=== PATIENT | male | born 1960 | race Caucasian/White ===

== ENCOUNTER → 2017-06-19 | Outpatient (CLI) | payer BC ==
[2017-06-19 09:50] LABS: ABSOLUTE BASOPHILS # (AUTO) 0.2 10^3/uL (0.0-0.2); ABSOLUTE EOSINOPHILS # (AUTO) 0.4 10^3/uL (0.0-0.6); ABSOLUTE MONOCYTES (AUTO) 0.7 10^3/uL (0.1-1.4); ABSOLUTE NEUT (AUTO) 5.9 10^3/uL (1.7-8.2); BASOPHILS % (AUTO) 2.1 % (0-2); EOSINOPHILS % (AUTO) 4.4 % (0-6); HEMATOCRIT 46.4 % (37.9-51.0); HEMOGLOBIN 16.4 g/dL (13.5-17.0); HGB HCT DIFFERENCE 2.8; LYMPHOCYTES % (AUTO) 21.7 % (13-45); MEAN CORPUSCULAR HEMOGLOBIN 28.8 pg (27.0-33.4); MEAN CORPUSCULAR HGB CONC 35.3 g/dL (32.0-36.0); MEAN CORPUSCULAR VOLUME 82 fl (80-97); MONOCYTES % (AUTO) 7.2 % (3-13); RED BLOOD COUNT 5.67 10^6/uL (4.35-5.55); RED CELL DISTRIBUTION WIDTH 13.9 % (11.5-14.0); SEGMENTED NEUTROPHILS % (AUTO) 64.6 % (42-78); WHITE BLOOD COUNT 9.1 10^3/uL (4.0-10.5)
[2017-06-19 10:08] LABS: ALANINE AMINOTRANSFERASE 28 U/L (21-72); ALBUMIN 4.1 g/dL (3.5-5.0); ALKALINE PHOSPHATASE 98 U/L (38-126); ANION GAP 11 (5-19); ASPARTATE AMINO TRANSFERASE 25 U/L (17-59); BILIRUBIN,DIRECT 0.5 mg/dL (0.0-0.4); BILIRUBIN,TOTAL 0.9 mg/dL (0.2-1.3); BLOOD UREA NITROGEN 17 mg/dL (7-20); CALCIUM 9.5 mg/dL (8.4-10.2); CARBON DIOXIDE 26 mmol/L (22-30); CHLORIDE 106 mmol/L (98-107); CHOLESTEROL 200.79 mg/dL (0-200); CREATININE RESULT 1.02 mg/dL (0.52-1.25); Direct HDL 38 mg/dL (>40); GLUCOSE 86 mg/dL (75-110); POTASSIUM 4.8 mmol/L (3.6-5.0); SODIUM 143.4 mmol/L (137-145); TOTAL PROTEIN 7.5 g/dL (6.3-8.2); TRIGLYCERIDES 143 mg/dL (<150)
[2017-06-19 10:19] LABS: DIRECT LDL 128 mg/dL (<100)
== END ==
LOC: OD 08:37
PROVIDERS: ATTEND Internal Medicine
DX: J44.9 Chronic obstructive pulmonary disease, unspecified (principal); Z68.34 Body mass index [BMI] 34.0-34.9, adult; M19.91 Primary osteoarthritis, unspecified site; R53.83 Other fatigue; R35.1 Nocturia
CPT/HCPCS: 36415; 80053; 80061; 84153; 84443; 85025

== ENCOUNTER → 2017-09-11 | Outpatient (CLI) | payer BC ==
[2017-09-11 14:28] LABS: BLOOD UREA NITROGEN 12 mg/dL (7-20)
== END ==
LOC: OD 13:06
PROVIDERS: ATTEND Internal Medicine
DX: Z01.812 Encounter for preprocedural laboratory examination (principal)
CPT/HCPCS: 36415; 82565; 84520

== ENCOUNTER → 2017-09-20 | Outpatient (CLI) | payer BC ==
--- NOTE | 2017-09-20 11:20 | RADIOLOGY REPORT (SQ) ---
EXAM DESCRIPTION: CTA CHEST COMPLETED DATE/TIME: 09/20/2017 10:48 am REASON FOR STUDY: I26.99 OTHER PULMONARY EMBOLISM WITHOUT ACUTE COR PULMONALE R06.02 SHORTNES I26.99 OTHER PULMONARY EMBOLISM WITHOUT ACUTE COR PULMONALE R06.02 SHORTNESS OF BREATH COMPARISON: None. TECHNIQUE: CT scan of the chest performed using helical scanning technique with dynamic intravenous contrast injection. Images reviewed with lung, soft tissue and bone windows. Reconstructed coronal and sagittal MPR images reviewed. Additional 3 dimensional post-processing performed to develop Maximal Intensity Projection images (SC P). All images stored on PACS. All CT scanners at this facility use dose modulation, iterative reconstruction, and/or weight based d osing when appropriate to reduce radiation dose to as low as reasonably achievable (ALARA). [facility]: Dose Right [facility]: CareDose [facility]: Dose Right [facility]: Teradose 4D [facility]: PulpWorks CONTRAST TYPE AND DOSE: contrast/concentration: Isovue 370.00 mg/ml; Total Contrast Delivered: 65.0 ml; Total Saline Delivered: 105.0 ml Contrast bolus optimized for the pulmonary arteries. Not diagnostic for the aorta. RENAL FUNCTION: Creatinine 1.0 RADIATION DOSE: CT Rad equipment meets quality standard of care and radiation dose reduction techniq ues were employed. CTDIvol: 9.8 - 11.3 mGy. DLP: 366 mGy-cm. . LIMITATIONS: None. FINDINGS: LUNGS AND PLEURA: Extensive changes of peripheral pulmonary fibrosis are present within th e end-stage honeycomb appearance around the periphery of both lungs. A 6.7 cm smooth round nodule is present along the ventral edge of the left major fissure axial image 17. A 9 mm ill-defined alveolar nodule is present in the lingula on axial image 30. No pleural effusion. No pneumothorax. No findings of acute pneumonia or consolidation. Airways are patent. AORTA AND GREAT VESSELS: No aneurysm. Contrast bolus not optimized for the aorta. HEART: No pericardial effusion. No significant coronary artery calcifications. PULMONARY ARTERIES: No emboli visualized in the main pulmonary arteries or the segmental branches. HILAR AND MEDIASTINAL STRUCTURES: Diffuse mediastinal adenopathy as follows: Anterior mediastinal 1.0 x 0.8 cm lymph node axial image 28 Pretracheal 1.1 cm and 0.8 x 0.6 cm nodes axial image 33 Pretracheal 1.3 x 1.3 cm lymph node axial image 41 Precarinal 1.8 x 1.2 cm lymph node axial image 50 Right hilum 2.6 x 1.3 cm node axial image 57 Right hilar 2 x 1.3 cm lymph node axial image 62 Right hilar 2.2 x 1.6 cm node axial image 72 Left hilar 1.6 x 0.8 cm node axial image 58 Left hilar 2 x 1.6 cm node axial image 72 Sub- carinal 2.3 x 1.2 cm node axial image 64 Prevascular 2 x 0.9 cm node axial image 47 HARDWARE: None in the chest. UPPER ABDOMEN: No significant findings. Limited exam. THYROID AND OTHER SOFT TISSUES: No masses. No adenopathy. BONES: No acute or significant finding. 3D MIPS: Confirm above findings. OTHER: No other significant finding. IMPRESSION: No CT angio evidence of acute pulmonary emboli. Diffuse changes of advanced pulmonary fibrosis around the periphery of both lungs Bilateral hilar and mediastinal adenopathy Subcentimeter left lung nodules as above. COMMENT: Quality ID # [id number]: Final reports with documentation of one or more dose reduction techniques (e.g., Automated exposure control, adjustment of the mA and/or kV according to patient size, use of iterative reconstruction technique) TECHNICAL DOCUMENTATION: JOB ID: [id number] [employer]- All Rights Reserved
== END ==
LOC: RAD 10:04
PROVIDERS: ATTEND Internal Medicine
DX: I26.99 Other pulmonary embolism without acute cor pulmonale (principal); R06.02 Shortness of breath
CPT/HCPCS: 71275

== ENCOUNTER → 2017-09-23 | Outpatient (CLI) | payer BC, OTHER ==
--- NOTE | 2017-09-23 14:29 | RADIOLOGY REPORT (SQ) ---
EXAM DESCRIPTION: MRI RT UPPER JOINT WITHOUT COMPLETED DATE/TIME: 09/23/2017 11:09 am REASON FOR STUDY: PAIN IN RIGHT SHOULDER M25.511 PAIN IN RIGHT SHOULDER COMPARISON: None. TECHNIQUE: Right shoulder images acquired and stored on PACS. Multiplanar imaging to include fat sen sitive sequences such as T1, water sensitive sequences such as FST2/STIR, cartilage sensitive sequenc es such as FSPD/gradient-echo sequences. LIMITATIONS: None. FINDINGS: BONE MARROW AND CORTEX: No worrisome bone lesions or marrow replacement. No occult fractur es. JOINT OR BURSAL EFFUSION: No significant joint or bursal fluid. No suggestion of loose bodies. GLENO-HUMERAL ARTICULATION: Normal articulation. No subluxation. No cystic change. No osteophytes or cartilage loss. ACROMION AND AC JOINT: Type 2 acromion. Distal acromial spur. Sclerotic changes with reactive edema of the AC joint. ROTATOR CUFF AND INTERVAL: No significant tear or signal alteration. No cuff muscle atrophy. No rotator interval tear. No rotator interval thickening to suggest adhesive capsulitis. LABRUM AND BICEPS LABRAL COMPLEX: Type 2 slap tear. The distal biceps in its normal anatomic locat ion. REMAINDER OF LABRUM AND IGHL : No gross tear or paralabral cyst formation. Labral evaluation is less than optimal without joint distention. No thickening of IGHL to suggest adhesive capsulitis. PERIARTICULAR AND ADJACENT SOFT TISSUES: No masses or abnormal nodes. OTHER: No other significant finding. IMPRESSION: Type 2 slap tear. AC joint arthropathy. TECHNICAL DOCUMENTATION: JOB ID: [id number] [email or web address]- All Rights Reserved
== END ==
LOC: RAD 10:13
PROVIDERS: ATTEND Physician Assistant Surgical
DX: M25.511 Pain in right shoulder (principal)

== ENCOUNTER → 2017-10-03 | Outpatient (CLI) | payer BC, OTHER ==
[~2017-10-03] MED LIST: AMINOPHYLLINE INJ/PF 250 MG/10 ML SDV IV ONE; REGADENOSON INJ 0.4 MG/5 ML DISP.SYRIN IV ONE
--- NOTE | 2017-10-03 13:43 | DRAGON STRESS TEST REPORT ---
INTRAVENOUS LEXISCAN CARDIOLITE STRESS TEST USING SINGLE PHOTON EMMISION COMPUTERIZED TOMOGRAPHIC. DATE OF PROCEDURE: October 03, 2017, INDICATION : Exertional dyspnea CARDIAC RISK FACTORS: Tobacco abuse, history of COPD RESTING EKG: Sinus rhythm without any baseline ST-T wave changes STRESS EKG: No significant changes noted with LexiScan bolus REASON FOR TERMINATION: Protocol. PROCEDURE REPORT: Baseline heart rate 81 beats per minute with blood pressure of 121/65. Patient had no significant complaints. Heart rate at 2 minutes post bolus 105 with a blood pressure of 107/69. 3 minutes post bolus heart rate 100 with blood pressure of 111/65. No significant EKG changes were noted. Patient had no significant complaints during the procedure or postprocedure. Patient injected with Aminophyllin 75 mg at 3 minutes or later after Lexiscan bolus. CONCLUSIONS: Normal EKG and hemodynamic response to IV LexiScan. NUCLEAR DATA: At rest the patient was given 12.03 millicuries of technetium 99 sestamibi injected intravenously. As per protocol rest gated SPECT images were obtained. On day of stress test, the patient was given intravenous LexiScan at a dose of 0.4 mg in 5 mL intravenously, followed by flush with normal saline. Subsequently the stress dose of 35.2 millicuries of technetium 99 sestamibi was injected intravenously. As per protocol stress gated images were obtained. NUCLEAR INTERPRETATION: Both raw and processed data were used for interpretation. Visual, qualitative, computer-generated quantitative data was used. There was good myocardial uptake of technetium compound. Motion artifact and soft tissue attenuations were noted. Increased visceral uptake was noted. No definitive areas of transient perfusion defect noted, No definitive areas of fixed perfusion defect or scars noted. EKG gated imaging showed LV EF at 64 %, rest and stress gated EF similar visually. T. I D. ratio was 1.25. Lung heart ratio noted to be within normal limits 0.42. No significant extracardiac and abnormal radiotracer activities were noted. RV free wall uptake was noted to be WNL. IMPRESSION: Also refer to comments under nuclear interpretation. Also test results needs to be interpreted in the context of pretest probability. 1. No definitive areas of transient perfusion defect noted. 2. There is no definitive scintigraphic evidence of myocardial infarction/scar. 3. EKG gated imaging shows left ventricular ejection fraction of approx. 64 %. Borderline transient ischemic dilatation noted. Most recent literature review suggest no significant increased cardiovascular event rate in the absence of significant perfusion abnormalities. However clinical correlation is requested. 4. Clinical correlation requested as occasionally single vessel disease or balanced ischemia could be missed. In approximately 10% of the cases Lexiscan may not cause adequate vasodilatory stress. RECOMMENDATIONS: Aggressive risk factor modification and medical management. Further evaluation may be needed if continued symptoms or other high risk indicators are noted on clinical evaluation. Close cardiology follow-up is also recommended. Clinical correlation with echocardiogram derived ejection fraction. Inability to exercise by itself can lead to increased cardiovascular event risks. Consider cardiology consultation and or follow-up if clinically indicated. I am available for cardiology evaluation and consultation if requested by the primary care coordinator, unless patient already has a well shooter. ALIZE
== END ==
LOC: RAD 07:51
PROVIDERS: ATTEND Internal Medicine
DX: R06.09 Other forms of dyspnea (principal)
CPT/HCPCS: 93017; 78452; A9500; J2785; J0280; Q9969

== ENCOUNTER → 2017-10-16 | Outpatient (CLI) | payer BC, OTHER ==
[2017-10-18 12:39] LABS: ANTICHROMATIN AB 0.3 AI (0.0-0.9); CENTROMERE B AB <0.2 AI (0.0-0.9); JO-1 ANTIBODY (ANACOMP) <0.2 AI (0.0-0.9); RNP AB 0.3 AI (0.0-0.9); SCLERODERMA-70 ANTIBODIES 0.2 AI (0.0-0.9); SJOGREN'S ANTI-SS-B AB <0.2 AI (0.0-0.9); SJOGREN'S SS-A ANTIBODY <0.2 AI (0.0-0.9); SMITH AB ANA <0.2 AI (0.0-0.9)
[2017-10-18 14:03] LABS: DNA DOUBLE STRAND ANTIBODY ANA 1 IU/mL (0-9)
[2017-10-21 13:37] LABS: CYTOPLASMIC (C-ANCA) <1:20 titer (Neg:<1:20); M001-IGE PENICILLIUM CHRYSOGEN <0.10 kU/L (Class 0); M002-IGE CLADOSPORIUM HERBARUM <0.10 kU/L (Class 0); M003-IGE ASPERGILLUS FUMIGATUS <0.10 kU/L (Class 0); M004-IGE MUCOR RACEMOSUS <0.10 kU/L (Class 0); M005-IGE CANDIDA ALBICANS 0.17 kU/L (Class 0/I); M006-IGE ALTERNARIA ALTERNATA <0.10 kU/L (Class 0); M009-IGE FUSARIUM PROLIFERATUM <0.10 kU/L (Class 0); M012-IGE AUREOBASIDI PULLULANS <0.10 kU/L (Class 0); M013-IGE PHOMA BETAE <0.10 kU/L (Class 0); M014-IGE EPICOCCUM PURPURASCEN <0.10 kU/L (Class 0)
[2017-10-21 13:41] LABS: ATYPICAL PANCA <1:20 titer (Neg:<1:20); M010-IGE STEMPHYLIUM HERBARUM <0.10 kU/L (Class 0); PERINUCLEAR (P-ANCA) <1:20 titer (Neg:<1:20)
== END ==
LOC: OD 13:44
PROVIDERS: ATTEND Physician Assistant
DX: J84.10 Pulmonary fibrosis, unspecified (principal); R05 Cough; R06.00 Dyspnea, unspecified
CPT/HCPCS: 36415; 82785; 86003; 86021; 86225; 86235; 86430; 87070; 87077; 87186; 87205

== ENCOUNTER → 2018-11-20 | Outpatient (CLI) | payer BC, OTHER ==
--- NOTE | 2018-11-20 12:18 | RADIOLOGY REPORT (SQ) ---
EXAM DESCRIPTION: CT CHEST WITHOUT COMPLETED DATE/TIME: 11/20/2018 10:09 am REASON FOR STUDY: PULMONARY FIBROSIS J84.10 PULMONARY FIBROSIS, UNSPECIFIED COMPARISON: 09/20/2017 TECHNIQUE: CT scan performed of the chest without intravenous contrast. Images reviewed with lung, soft tissue and bone windows. Reconstructed coronal and sagittal MPR images reviewed. All images st ored on PACS. All CT scanners at this facility use dose modulation, iterative reconstruction, and/or weight based d osing when appropriate to reduce radiation dose to as low as reasonably achievable (ALARA). [facility]: Dose Right [facility]: CareDose [facility]: Dose Right [facility]: Teradose 4D [facility]: [employer] RADIATION DOSE: CT Rad equipment meets quality standard of care and radiation dose reduction techniq ues were employed. CTDIvol: 5.2 mGy. DLP: 205 mGy-cm. mGy. LIMITATIONS: No technical limitations. FINDINGS: LUNGS AND PLEURA: Centrilobular and paraseptal emphysema with stable honeycombing approxim ately 50% of lung volume. Stable pulmonary nodules. Image 27 right apex at 4 mm. Image 33 left upp er lobe 7 mm. Image 68 left upper lobe 6 mm. No new nodules. HILAR AND MEDIASTINAL STRUCTURES: Mildly enlarged, likely reactive nodes measuring just over 1 cm max imum diameter. HEART AND VASCULAR STRUCTURES: No aneurysm. No pericardial effusion. UPPER ABDOMEN: No significant findings. Limited exam. THYROID AND OTHER SOFT TISSUES: No masses. No adenopathy. BONES: Nothing acute. HARDWARE: None in the chest. OTHER: No other significant findings. IMPRESSION: Pulmonary fibrosis. Stable pulmonary nodules. TECHNICAL DOCUMENTATION: JOB ID: [id number] Quality ID # [id number]: Final reports with documentation of one or more dose reduction techniques (e.g., Au tomated exposure control, adjustment of the mA and/or kV according to patient size, use of iterative reconstruction technique) 2010 [employer]- All Rights Reserved Reading location - IP/workstation name: [email or web address]
== END ==
LOC: RAD 09:59
PROVIDERS: ATTEND Internal Medicine Pulmonary Disease
DX: J84.10 Pulmonary fibrosis, unspecified (principal)
CPT/HCPCS: 71250

== ENCOUNTER → 2019-02-02 | Outpatient (CLI) | payer BC ==
--- NOTE | 2019-02-04 22:30 | XCELERA REPORT ---
[address] [address] Transthoracic Echocardiogram Report Name: ONEAL GARVEY JR Age: 58 yrs Gender: Male : 1960 Patient Status: Outpatient Patient Location: Study Date: 02/02/2019 11:23 AM Height: 67 in Weight: 174 lb BSA: 1.9 m2 Procedure: A complete two-dimensional transthoracic echocardiogram was performed (2D, M-mode, spectral and color flow Doppler). The study was technically adequate with some images being suboptimal in quality. Reason For Study: INTERSTITIAL PULMONARY DISEASE Ordering Physician: LIZZETTE ESPINAL Performed By: Freddie Joseph Interpretation Summary The left ventricular ejection fraction is normal. Doppler measurements suggest pseudonormalized left ventricular relaxation, which is associated with grade II/IV or mild to moderate diastolic dysfunction There is borderline concentric left ventricular hypertrophy. The left ventricle is grossly normal size. Wall motion cannot be accurately commented on, but no definite regional wall motion abnormalities noted. The right ventricle is mildly dilated. The right ventricle appears to be hypertrophied The right ventricular systolic function is normal. Borderline right atrial enlargement. There is a mild amount of mitral regurgitation There is no mitral valve stenosis. There is a trace amount of aortic regurgitation There is no aortic valve stenosis There is a trace to mild amount of tricuspid regurgitation Right ventricular systolic pressure is estimated to be elevated at 40-50mmHg. There is mild to moderate pulmonary hypertension by echo The aortic root is not well visualized but is probably normal size. The inferior vena cava appeared normal and decreased > 50% with respiration (RAP 5-10 mmHg) There is no pericardial effusion. MMode/2D Measurements & Calculations RVDd: 3.6 cm LVIDd: 4.4 cm FS: 34.6 % Ao root diam: 3.2 cm IVSd: 0.76 cm LVIDs: 2.9 cm EDV(Teich): Ao root area: 89.4 ml LVPWd: 0.92 cm 8.1 cm2 ESV(Teich): LA dimension: 3.5 cm 32.2 ml EF(Teich): 64.0 % LVLd ap4: 7.7 cm SV(MOD-sp4): EDV(MOD-sp4): 55.0 ml 93.0 ml LVLs ap4: 6.4 cm ESV(MOD-sp4): 38.0 ml EF(MOD-sp4): 59.1 % Doppler Measurements & Calculations MV E max gennaro: MV P1/2t max gennaro: Ao V2 max: LV V1 max P.9 cm/sec 93.6 cm/sec 121.5 cm/sec 5.0 mmHg MV A max gennaro: MV P1/2t: 69.5 msec Ao max P.9 mmHgLV V1 max: 49.0 cm/sec 111.4 cm/sec MVA(P1/2t): 3.2 cm2 MV E/A: 2.0 MV dec slope: 394.5 cm/sec2 MV dec time: 0.16 sec PA V2 max: TR max gennaro: MV P1/2t-pr_phl: 100.2 cm/sec 305.4 cm/sec 69.5 msec PA max P.0 mmHgTR max P.3 mmHg Left Ventricle The left ventricle is grossly normal size. There is borderline concentric left ventricular hypertrophy. The left ventricular ejection fraction is normal. Doppler measurements suggest pseudonormalized left ventricular relaxation, which is associated with grade II/IV or mild to moderate diastolic dysfunction. Wall motion cannot be accurately commented on, but no definite regional wall motion abnormalities noted. Right Ventricle The right ventricle is mildly dilated. The right ventricle appears to be hypertrophied. The right ventricular systolic function is normal. Atria Borderline right atrial enlargement. Borderline left atrial enlargement. Mitral Valve The mitral valve is grossly normal. There is no mitral valve stenosis. There is a mild amount of mitral regurgitation. Aortic Valve The aortic valve is grossly normal. There is no aortic valve stenosis. There is a trace amount of aortic regurgitation. Tricuspid Valve The tricuspid valve is not well visualized, but is grossly normal. There is no tricuspid stenosis. There is a trace to mild amount of tricuspid regurgitation. Right ventricular systolic pressure is estimated to be elevated at 40-50mmHg. There is mild to moderate pulmonary hypertension by echo. Pulmonic Valve The pulmonic valve is not well visualized. Great Vessels The aortic root is not well visualized but is probably normal size. The inferior vena cava appeared normal and decreased > 50% with respiration (RAP 5-10 mmHg). Effusions There is no pericardial effusion. : LIZZETTE ESPINAL > Luciano Vernon
== END ==
LOC: SP 10:37
PROVIDERS: ATTEND Internal Medicine
DX: J84.9 Interstitial pulmonary disease, unspecified (principal); I27.20 Pulmonary hypertension, unspecified
CPT/HCPCS: 93306

== ENCOUNTER → 2019-03-13 | Outpatient (CLI) | payer OTHER ==
--- NOTE | 2019-03-17 12:39 | Pulmonary Function Test ---
Pulmonary Function Test Date of Procedure:: 03/13/19 INDICATION:: dypsnea Referring Provider: Dr.Edwin Ortiz Cream Separator Operator: Marianela Reyez GATHERING WORKER,LAUNDROMAT MANAGER - Report Spirometry: Spirometry: pre-FVC: 3.24L 80% pre-FEV:1 2.59 L 79% pre-FEV1/FVC % 80 predicted 80 xwa-PMA76-50% 2.59 L 77% Diffusion Capactity: DLCO: 12.3 55% DLCO/VA: 2.65 68% Impression: No obstructive ventilatory defect. Moderate decrease in diffusion capacity.
== END ==
LOC: RT 08:03
DX: J84.112 Idiopathic pulmonary fibrosis (principal)
CPT/HCPCS: 94010; 94729

== ENCOUNTER 2019-07-31 10:52 | Emergency (ER) | payer BC, OTHER ==
--- NOTE | 2019-07-31 11:22 | ER Document Report ---
ED Respiratory Problem - General Chief Complaint: Productive Cough Stated Complaint: COUGHING UP BLOOD Time Seen by Provider: 07/31/19 11:15 Primary Care Provider: LIZZETTE ESPINAL MD [Primary Care Provider] - Follow up as needed Mode of Arrival: Ambulatory Information source: Patient Notes: 59-year-old male presented to ED for complaint of cough and congestion with c oughing up to large blood clots this morning. He states he has been coughing up little specks of blood since morning but first he coughed up 2 good-sized globs of blood. He does have COPD asthma and clubbing to the fingers due to the COPD. He states he does smoke cigarettes still. He states he knows he needs to quit but that he enjoys smoking and he is continuing to smoke. Patient states he is normally very sedentary but 2 days ago he had to get down in a hole and when he was getting into a hole and working he did feel like something popped in the left side of his chest but it feels more like a sore on the outside not inside. I have greeted and performed a rapid initial assessment of this patient. A comprehensive ED assessment and evaluation of the patient, analysis of test res ults and completion of medical decision making process will be conducted by an additional ED providers. TRAVEL OUTSIDE OF THE [place] IN LAST 30 DAYS: No - Related Data Allergies/Adverse Reactions: No Known Allergies Allergy (Unverified 07/31/19 11:17) Physical Exam - Vital signs Vitals: Temp Pulse Resp BP Pulse Ox 97.4 F 85 18 136/80 H 94 07/31/19 11:02 07/31/19 11:02 07/31/19 11:02 07/31/19 11:02 07/31/19 11:02 Course - Vital Signs Vital signs: Temp Pulse Resp BP Pulse Ox 97.4 F 85 18 136/80 H 94 07/31/19 11:02 07/31/19 11:02 07/31/19 11:02 07/31/19 11:02 07/31/19 11:02 Discharge - Discharge Referrals: LIZZETTE ESPINAL MD [Primary Care Provider] - Follow up as needed
--- NOTE | 2019-07-31 11:23 | ER Document Report ---
ED Medical Screen (RME) - General Chief Complaint: Cough Stated Complaint: COUGHING UP BLOOD Time Seen by Provider: 07/31/19 11:15 Primary Care Provider: LIZZETTE ESPINAL MD [Primary Care Provider] - Follow up as needed Mode of Arrival: Ambulatory Information source: Patient Notes: 59-year-old male presented to ED for complaint of cough and congestion with coughing up to large blood clots this morning. He states he has been coughing up little specks of blood since morning but first he coughed up 2 good-sized globs of blood. He does have COPD asthma and clubbing to the fingers due to the COPD. He states he does smoke cigarettes still. He states he knows he needs to quit but that he enjoys smoking and he is continuing to smoke. Patient states he is normally very sedentary but 2 days ago he had to get down in a hole and when he was getting into a hole and working he did feel like something popped in the left side of his chest but it feels more like a sore on the outside not inside. I have greeted and performed a rapid initial assessment of this patient. A comprehensive ED assessment and evaluation of the patient, analysis of test results and completion of medical decision making process will be conducted by an additional ED providers. TRAVEL OUTSIDE OF THE [place] IN LAST 30 DAYS: No - Related Data Allergies/Adverse Reactions: codeine Adverse Reaction (Verified 07/31/19 11:23) Past Medical History - Social History Chew tobacco use (# tins/day): No Drug Abuse: None Physical Exam - Vital signs Vitals: Temp Pulse Resp BP Pulse Ox 97.4 F 85 18 136/80 H 94 07/31/19 11:02 07/31/19 11:02 07/31/19 11:02 07/31/19 11:02 07/31/19 11:02 Course - Vital Signs Vital signs: Temp Pulse Resp BP Pulse Ox 97.4 F 85 18 136/80 H 94 07/31/19 11:17 07/31/19 11:17 07/31/19 11:17 07/31/19 11:17 07/31/19 11:17 Doctor's Discharge - Discharge Referrals: LIZZETTE ESPINAL MD [Primary Care Provider] - Follow up as needed
[2019-07-31 11:55] LABS: ABSOLUTE BASOPHILS # (AUTO) 0.1 10^3/uL (0.0-0.2); ABSOLUTE EOSINOPHILS # (AUTO) 0.2 10^3/uL (0.0-0.6); ABSOLUTE LYMPHOCYTES (AUTO) 1.7 10^3/uL (0.5-4.7); ABSOLUTE MONOCYTES (AUTO) 0.7 10^3/uL (0.1-1.4); ABSOLUTE NEUT (AUTO) 4.9 10^3/uL (1.7-8.2); BASOPHILS % (AUTO) 1.4 % (0-2); EOSINOPHILS % (AUTO) 2.5 % (0-6); HEMATOCRIT 45.4 % (37.9-51.0); HEMOGLOBIN 15.5 g/dL (13.5-17.0); LYMPHOCYTES % (AUTO) 22.1 % (13-45); MEAN CORPUSCULAR HEMOGLOBIN 27.3 pg (27.0-33.4); MEAN CORPUSCULAR HGB CONC 34.1 g/dL (32.0-36.0); MEAN CORPUSCULAR VOLUME 80 fl (80-97); MONOCYTES % (AUTO) 9.7 % (3-13); PLATELET COUNT 329 10^3/uL (150-450); RED BLOOD COUNT 5.67 10^6/uL (4.35-5.55); SEGMENTED NEUTROPHILS % (AUTO) 64.3 % (42-78); TOTAL CELLS COUNTED % (AUTO) 100 %; WHITE BLOOD COUNT 7.6 10^3/uL (4.0-10.5)
[2019-07-31 12:08] LABS: APPEARANCE,URINE CLEAR; BILIRUBIN,URINE NEGATIVE (NEGATIVE); COLOR,URINE YELLOW; GLUCOSE, URINE NEGATIVE (NEGATIVE); KETONES,URINE NEGATIVE (NEGATIVE); PROTEIN,URINE NEGATIVE (NEGATIVE); URINE SPECIFIC GRAVITY 1.006; UROBILINOGEN,URINE NEGATIVE mg/dL (<2.0)
[2019-07-31 12:11] LABS: ALBUMIN 4.1 g/dL (3.5-5.0); ALKALINE PHOSPHATASE 84 U/L (38-126); ANION GAP 10 (5-19); ASPARTATE AMINO TRANSFERASE 21 U/L (17-59); BILIRUBIN,DIRECT 0.2 mg/dL (0.0-0.4); BILIRUBIN,TOTAL 0.8 mg/dL (0.2-1.3); BLOOD UREA NITROGEN 11 mg/dL (7-20); CALCIUM 9.6 mg/dL (8.4-10.2); CARBON DIOXIDE 27 mmol/L (22-30); CHLORIDE 100 mmol/L (98-107); GLUCOSE 86 mg/dL (75-110); TOTAL PROTEIN 7.9 g/dL (6.3-8.2)
[2019-07-31 14:45] LABS: INTERNATIONAL RATION (INR) 1.02; PROTHROMBIN TIME 13.4 SEC (11.4-15.4)
[2019-07-31 14:46] LABS: PARTIAL THROMBOPLASTIN TIME 34.7 SEC (23.5-35.8)
--- NOTE | 2019-07-31 15:40 | RADIOLOGY REPORT (SQ) ---
EXAM DESCRIPTION: CTA CHEST COMPLETED DATE/TIME: 07/31/2019 3:13 pm REASON FOR STUDY: hemoptysis COMPARISON: CT of the chest without contrast from 11/20/2018 TECHNIQUE: CT scan of the chest performed using helical scanning technique with dynamic intravenous contrast injection. Images reviewed with lung, soft tissue and bone windows. Reconstructed coronal and sagittal MPR images reviewed. Additional 3 dimensional post-processing performed to develop Maximal Intensity Projection images (AL P). All images stored on PACS. All CT scanners at this facility use dose modulation, iterative reconstruction, and/or weight based d osing when appropriate to reduce radiation dose to as low as reasonably achievable (ALARA). [facility]: Dose Right [facility]: CareDose [facility]: Dose Right [facility]: Teradose 4D [facility]: [employer] CONTRAST TYPE AND DOSE: Contrast/concentration: Isovue 350.00 mg/ml; Total Contrast Delivered: 56.0 ml; Total Saline Delivered: 70.0 ml Contrast bolus optimized for the pulmonary arteries. RENAL FUNCTION: Creatinine 0.96 milligrams/deciliter. RADIATION DOSE: CT Rad equipment meets quality standard of care and radiation dose reduction techniq ues were employed. CTDIvol: 13.2 - 14.3 mGy. DLP: 533 mGy-cm. . LIMITATIONS: None. FINDINGS: LUNGS AND PLEURA: The trachea main bronchi are patent. There are unchanged findings typic al of a chronic fibrotic chronic interstitial process. The bilateral solid pulmonary nodules that me asure up to 6 mm in diameter are unchanged; these include the perifissural nodule in the left upper l obe (image 29 of series 3) and the nodule in the lingula (image 76 of series 3). There is no acute c onsolidation, ground-glass opacification or pleural effusion. AORTA AND GREAT VESSELS: No aneurysm of the abdominal aorta. HEART: The left ventricle is enlarged. There is mild atherosclerotic calcification of the coronary a rteries. PULMONARY ARTERIES: The right pulmonary artery measures 2.6 cm in AP diameter - correlate clinically for pulmonary hypertension. There are no filling defects within the main, right and left pulmonary a rteries or their respective segmental branches. Evaluation of the subsegmental branches of the pulmo nary arteries is limited due to respiratory motion HILAR AND MEDIASTINAL STRUCTURES: Stable enlarged mediastinal and bilateral hilar lymph nodes; for re ference the sub- carinal lymph node on image 65 of series 3) measures 11 mm in short axis diameter. HARDWARE: None in the chest. UPPER ABDOMEN: No acute findings. THYROID AND OTHER SOFT TISSUES: No masses or adenopathy. BONES: No acute findings. 3D MIPS: Confirm above findings. OTHER: No other finding. IMPRESSION: Stable pulmonary fibrosis and pulmonary nodules. There is no central or segmental pulmo nary embolus. COMMENT: Quality ID # [id number]: Final reports with documentation of one or more dose reduction techniques (e.g., Automated exposure control, adjustment of the mA and/or kV according to patient size, use of iterative reconstruction technique) TECHNICAL DOCUMENTATION: JOB ID: [id number] [employer]- All Rights Reserved Reading location - IP/workstation name: [email or web address]
--- NOTE | 2019-07-31 16:04 | ER Document Report ---
ED General - General Chief Complaint: Cough Stated Complaint: COUGHING UP BLOOD Time Seen by Provider: 07/31/19 11:15 Primary Care Provider: LIZZETTE ESPINAL MD [NO LOCAL MD] - Follow up as needed Mode of Arrival: Ambulatory TRAVEL OUTSIDE OF THE [place] IN LAST 30 DAYS: No - HPI Notes: 59-year-old male with a longstanding history of rheumatoid lung presenting with chief complaint of hemoptysis. This gentleman unfortunately continues to smoke a pack and a half of cigarettes per day. He is currently on CellCept. He is being followed by [facility] at [facility]. Patient says when he awakened this morning he coughed up some dark blood about size of a quarter. He had no further bleeding at that time. Later in the morning he had 2 similar ep isodes with smaller amounts of blood each time. Interestingly he said he had been working outside his home 2 days ago turning on and off the main water line to his house and he had been lying on the ground when he was doing this. At that time he had felt a slight pop in the left side of his chest. The area was slightly sore but not bad enough to take even Tylenol for pain. He denies any fever. He denies dyspnea. He is not currently using any oxygen. He does have metered-dose inhalers at home but has not felt the need to use these. He is not taking aspirin or any other type of anticoagulant. He denies any known history of thromboembolic disease. Family history is negative for thromboembolic disease. Patient reports loss of about 8 pounds of weight in the last 3 months without dieting. - Related Data Allergies/Adverse Reactions: codeine Adverse Reaction (Verified 07/31/19 11:23) Past Medical History - General Information source: Patient, Relative - Social History Smoking Status: Current Every Day Smoker Chew tobacco use (# tins/day): No Drug Abuse: None Lives with: Spouse/Significant other Family History: Reviewed & Not Pertinent Patient has suicidal ideation: No Patient has homicidal ideation: No Pulmonary Medical History: Reports: Other - Rheumatoid lung and COPD. Review of Systems - Review of Systems Notes: Constitutional: Negative for fever. HENT: Negative for sore throat. Eyes: Negative for visual changes. Cardiovascular: As per HPI. Respiratory: As per HPI. Gastrointestinal: Negative for abdominal pain, vomiting or diarrhea. Genitourinary: Negative for dysuria. Musculoskeletal: Negative for back pain. Skin: Negative for rash. Neurological: Negative for headaches, weakness or numbness. 10 point ROS negative except as marked above and in HPI. Physical Exam - Vital signs Vitals: Temp Pulse Resp BP Pulse Ox 97.4 F 85 18 136/80 H 94 07/31/19 11:02 07/31/19 11:02 07/31/19 11:02 07/31/19 11:02 07/31/19 11:02 - Notes Notes: GENERAL: Well-developed well-nourished appearing in no acute distress. SKIN: Good turgor no rashes. HEAD: Normocephalic atraumatic. EYES: PERRLA. Conjunctivae and sclerae clear. EARS: CANALS AND TMS CLEAR. NOSE: CLEAR. MOUTH: Moist mucosa. Good dentition. No stridor or edema. No drooling. NECK: Supple. No masses or thyromegaly. No adenopathy. Carotids 2+ without bruits. No JVD. BACK: Symmetrical without tenderness. CHEST: Respirations unlabored. Breath sounds symmetrical with faint wheezes and coarse rhonchi bilaterally. Patient says his physicians have always told him that he is never without wheezes or rhonchi. HEART: Regular rhythm. No murmur gallop or rub. ABDOMEN: Soft nontender without masses, organomegaly or rebound. Bowel sounds normally active. No bruits. GENITALIA: Deferred. EXTREMITIES: Very prominent clubbing of nailbeds both upper extremities. Pat kayla says these changes have been chronic for more than 5 years. No edema. No calf tenderness. Cap refill less than 1.5 seconds. Dorsalis pedis and posterior tibial pulses 3+ and symmetrical. NEUROLOGICAL: GCS 15. Alert and oriented x3. Normal gait. Fluent speech. Cranial nerves II through XII intact. Sensorimotor and cerebellar normal. Normal tone. Course - Re-evaluation Re-evalutation: 07/31/19 16:07 This man is hemodynamically stable his hemoglobin and coags are normal. His white count is not elevated. His room air O2 saturation by pulse oximetry is normal he does not appear in any respiratory distress. CTA of the chest showed no evidence of PE per radiologist and no obvious mass or cavitation. He is cert ainly very high risk for occult neoplasm. I have again encouraged him to stop smoking. I am going to treat him initially as an acute bronchitis with an oral antibiotic and short burst of oral prednisone. He is advised to return here immediately for any increased bleeding, dyspnea, fever or other new symptoms. I have otherwise recommended that he contact his [facility] and arrange follow- up within the next few days. I explained to him that he may wish to obtain a bronchoscopy for him as an outpatient. Patient and expressed full understanding of information provided by me to them today. - Vital Signs Vital signs: Temp Pulse Resp BP Pulse Ox 97.4 F 85 18 136/80 H 99 07/31/19 11:17 07/31/19 11:17 07/31/19 11:17 07/31/19 11:17 07/31/19 11:25 - Laboratory Result Diagrams: 07/31/19 11:32 07/31/19 11:32 Laboratory results interpreted by me: 07/31/19 07/31/19 11:32 11:32 RBC 5.67 H Sodium 136.8 L - Diagnostic Test Radiology reviewed: Reports reviewed Discharge - Discharge Clinical Impression: Hemoptysis, Rheumatoid lung, Cigarette smoker COPD (chronic obstructive pulmonary disease) Qualifiers: COPD type: COPD with acute exacerbation Qualified Code(s): J44.1 - Chronic obstructive pulmonary disease with (acute) exacerbation Condition: Stable Disposition: HOME, SELF-CARE Additional Instructions: Hemoptysis Hemoptysis (coughing up blood) can occur with many different diseases. Most commonly, it's due to an infection such as bronchitis. Although alarming, the presence of blood in the phlegm doesn't change the treatment of bronchitis or pneumonia. The physician has evaluated you to see if there is evidence of an underlying problem requiring further evaluation. If he has recommended further tests, you should follow up as instructed. Hemoptysis without an identifiable cause can be due to tumors or hidden infections. Return for a recheck if the blood increases greatly in amount, or if you develop shortness of breath, high fever, severe chest pain, or other alarming new symptoms. Contact your spectacle truer to arrange early follow-up. Prescriptions: Prednisone [Deltasone 20 mg Tablet] 2 tab PO DAILY 5 Days tablet Doxycycline Monohydrate 100 mg PO BID #20 capsule Forms: Smoking Cessation Education Referrals: LIZZETTE ESPINAL MD [NO LOCAL MD] - Follow up as needed
[2019-07-31 16:26] VITALS: BP 134/82
== END 2019-07-31 16:25 | disposition home or self-care (01) ==
LOC: ER 10:52
DX: R04.2 Hemoptysis (principal); M05.10 Rheumatoid lung disease with rheumatoid arthritis of unspecified site; J44.1 Chronic obstructive pulmonary disease with (acute) exacerbation; F17.210 Nicotine dependence, cigarettes, uncomplicated; Z79.899 Other long term (current) drug therapy; R63.4 Abnormal weight loss; R68.3 Clubbing of fingers
CPT/HCPCS: 36415; 71275; 80053; 81001; 84484; 85025; 85610; 85730; 99284

== ENCOUNTER → 2019-10-06 | Outpatient (CLI) | payer BC, OTHER ==
--- NOTE | 2019-10-06 16:57 | RADIOLOGY REPORT (SQ) ---
EXAM DESCRIPTION: CHEST 2 VIEWS COMPLETED DATE/TIME: 10/06/2019 1:47 pm REASON FOR STUDY: J44.1 CHRONIC OBSTRUCTIVE PULMONARY DISEASE W (ACUTE) EXACERBATION COMPARISON: CT dated 07/31/2019. EXAM PARAMETERS: NUMBER OF VIEWS: two views TECHNIQUE: Digital Frontal and Lateral radiographic views of the chest acquired. RADIATION DOSE: NA LIMITATIONS: none FINDINGS: LUNGS AND PLEURA: Extensive interstitial prominence secondary to pulmonary fibrosis. No f ocal infiltrates, masses or pneumothorax. No pleural effusion. MEDIASTINUM AND HILAR STRUCTURES: No masses or contour abnormalities. HEART AND VASCULAR STRUCTURES: Heart normal size. No evidence for failure. BONES: No acute findings. HARDWARE: None in the chest. OTHER: No other significant finding. IMPRESSION: EXTENSIVE CHRONIC PULMONARY FIBROSIS. NO ACUTE RADIOGRAPHIC FINDING IN THE CHEST. TECHNICAL DOCUMENTATION: JOB ID: [id number] 2010 [employer]- All Rights Reserved Reading location - IP/workstation name: [email or web address]
== END ==
LOC: RAD 13:28
PROVIDERS: ATTEND Registered Nurse
DX: J44.1 Chronic obstructive pulmonary disease with (acute) exacerbation (principal)
CPT/HCPCS: 71046; 87070; 87077; 87205

== ENCOUNTER → 2020-02-09 | Outpatient (CLI) | payer BC, OTHER ==
[2020-02-09 12:15] VITALS: BP 109/62
--- NOTE | 2020-02-09 12:15 | ER RDC ASSESSMENT REPORT ---
Intake - In the Last 14 days Have you traveled outside [place]?: No Have you been in close contact with someone CONFIRMED: No Worked in Healthcare?: No - Symptoms Subjective Fever([place] feverish): Yes Chills: No Muscule Aches: Yes Runny Nose: No Sore Throat: Yes Cough (New or worsening chronic cough): Yes Shortness of breath: Yes Nausea or Vomiting: Yes Headache: Yes Abdominal Pain: Yes Diarrhea(3 or more loose stools in last 24 hours): Yes - Do you have any of the following Chronic lung disease: Asthma or emphysema or COPD: Yes Chronic Lung Disease Comment: History of COPD and pulmonary fibrosis Cystic Fibrosis: No Diabetes: No High Blood Pressure: No Cardiovascular Disease: No Chronic Kidney Disease: No Chronic Liver Disease: No Chronic blood disorder like Sickle Cell Disease: No Weak immune system due to disease or medication: No Neurologic condition that limits movement: No Developmental delay - Moderate to Severe: No Recent (within past 2 weeks) or current : No Morbid Obesity (>100 pounds over ideal weight): No Obesity Comment: Height 5 feet 8 inches weight 156 pounds - Objective Temperature: 98.6 F Pulse Rate: 92 Respiratory Rate: 20 Blood Pressure: 109/62 O2 Sat by Pulse Oximetry: 95 Objective: Given above, testing performed: If Testing Performed: Test Specimen Type Sent to General - General Information source: Patient Notes: Patient here at [facility] for COVID testing started having symptoms last week on February 03 having a fever especially at night cough worse than usual shortness of breath nausea headache. Patient follows up with Dr. Simpson and was told to have COVID testing done. - Related Data Allergies/Adverse Reactions: codeine Adverse Reaction (Verified 07/31/19 11:23) Past Medical History - Social History Smoking Status: Current Every Day Smoker Cigarette use (# per day): Yes - pack a day Smoking Education Provided: Yes Family History: Reviewed & Not Pertinent Physical Exam - General General appearance: Appears well, Alert In distress: None Notes: PHYSICAL EXAMINATION: GENERAL: Well-appearing and in no acute distress. HEAD: Atraumatic, normocephalic. EYES: sclera anicteric, conjunctiva are normal. ENT: nares patent. Moist mucous membranes. NECK: Normal range of motion, supple without lymphadenopathy LUNGS: CTAB and equal. No wheezes rales or rhonchi. Resp even and unlabored. Lung sounds clear except for faint expiratory wheeze posterior upper right lobe. Moist non productive cough noted HEART: Regular rate and rhythm without murmurs ABDOMEN: Soft, nontender, normal bowel sounds, no guarding. EXTREMITIES: No cyanosis. NEUROLOGICAL: Normal speech. PSYCH: Normal mood, normal affect. SKIN: Warm, Dry, normal turgor, Diagnostic Results Laboratory Results: Patient informed of negative rapid strep and negative rapid flu results pending strep culture pending cover testing results. Patient provided instructions regarding COVID to include: As a person under investigation for Covid 19, the [facility] of Health and Human Services, division of public health advises you to adhere to the following guidance until your test results are reported to you. If your test result is positive, you will receive additional information from your provider and your local health department at that time. Remain at home until you are cleared by the health provider or public health authorities. Keep a log of visitors to your home, notify any visitors to your home of your isolation status. If you plan to move to a new address or leave the [facility], notify the local health department in your County. Call your doctor or seek care if you have an urgent medical need. Before seeking medical care, call ahead to get instructions from the provider before arriving at the medical office clinic or hospital. Notify them that you are being tested for the virus that causes Covid 19 so that arrangements can be made, as necessary, to prevent transmission to others in the healthcare setting. Next, notify the local health department in your [facility]. If a medical emergency arises and you need to call 911, inform the first responders that you are being tested for the virus that causes Covid 19. Next, notify the local health department in your [facility]. Patient Education/Counseling Counseling/Education: Patient presents with upper respiratory symptoms worrisome for possible Covid 19. Patient does not have emergency worring symptoms such as difficulty breathing, shortness of breath, chest pain, pressure, confusion or cyanosis. Patient appears suitable for discharge. Patient instructed to follow up with PCP Dr. Nolasco To ED for persistent or worsenng symptoms. Patient's vital signs are stable and patient is nontoxic in appearance. Good return precautions have been discussed with patient, patient verbalized understanding and is agreeable with discharge plan of care at this time. RDC Discharge - Discharge Clinical Impression: COVID - 19 SCREENING Condition: Stable Disposition: Home; Selfcare
[2020-02-09 13:02] LABS: A TYPE INFLUENZA AG NEGATIVE (NEGATIVE); B INFLUENZA AG NEGATIVE (NEGATIVE)
== END ==
LOC: RDC 11:33
PROVIDERS: ATTEND Nurse Practitioner Family
DX: Z03.818 Encounter for observation for suspected exposure to other biological agents ruled out (principal); M79.10 Myalgia, unspecified site; J02.9 Acute pharyngitis, unspecified; R05 Cough; R06.02 Shortness of breath; R11.10 Vomiting, unspecified; R51 Headache; R10.9 Unspecified abdominal pain; J44.9 Chronic obstructive pulmonary disease, unspecified; F17.210 Nicotine dependence, cigarettes, uncomplicated; J84.10 Pulmonary fibrosis, unspecified
CPT/HCPCS: 87070; 87880; 87635; 87804; 99201; 99211; C9803